=== PATIENT | male | born 1970 | race Caucasian/White ===

== ENCOUNTER 2019-02-17 18:18 | Emergency (ER) | payer OTHER ==
[~2019-02-17] VITALS: Ht 188 cm; Wt 113.4 kg
[~2019-02-17 18:18] MED LIST: CYCL10 PO; HYDACE10B PO; HYDACE5 PO; IBUP600 PO; LISI5 PO; METO25 PO; METO50 PO; METPRE4DP PO; OXYACE5T PO
== END 2019-02-17 21:09 | disposition home or self-care (01) ==
LOC: ER 18:18
DX: S83.91XA Sprain of unspecified site of right knee, initial encounter (principal); M54.9 Dorsalgia, unspecified; G89.29 Other chronic pain; Z88.0 Allergy status to penicillin; Z88.1 Allergy status to other antibiotic agents; Z91.011 Allergy to milk products; F17.200 Nicotine dependence, unspecified, uncomplicated; W18.09XA Striking against other object with subsequent fall, initial encounter
CPT/HCPCS: 29505; 73564; 99283-25; A9270-GY